=== PATIENT | female | born 1980 | race Caucasian/White ===

== ENCOUNTER 2018-08-16 22:40 | Emergency (ER) | payer MEDICARE ==
[~2018-08-16] VITALS: Ht 170.2 cm; Wt 59.1 kg
[2018-08-16 22:46] VITALS: Ht 170.2 cm; Wt 59.1 kg
[2018-08-16] MEDS ORDERED: BUSPAR10 MG PO (22:47)
[2018-08-16] MEDS ORDERED: INVEGA 3 MG ER T3 MG PO (22:47)
[2018-08-16] MEDS ORDERED: GRAPE SEED COMPLEX (22:47)
[2018-08-16 23:00] LABS: APPEARANCE CLEAR (CLEAR); BILIRUBIN NEGATIVE (NEGATIVE); COLOR COLORLESS (YELLOW); GLUCOSE NEGATIVE (NEGATIVE); KETONE NEGATIVE (NEGATIVE); NITRITE NEGATIVE (NEGATIVE); PROTEIN NEGATIVE (NEGATIVE); UROBILINOGEN NORMAL (NORMAL)
[2018-08-16 23:06] LABS: UDS - AMPHET NEGATIVE QUAL (NEGATIVE); UDS - BARB NEGATIVE QUAL (NEGATIVE); UDS - BENZO NEGATIVE QUAL (NEGATIVE); UDS - COCAINE NEGATIVE QUAL (NEGATIVE); UDS - OPIATE NEGATIVE QUAL (NEGATIVE); UDS - PCP NEGATIVE QUAL (NEGATIVE); UDS - THC NEGATIVE QUAL (NEGATIVE)
[2018-08-16 23:39] LABS: BASOPHILS 0.2 % (0-2); EOSINOPHILS 1.1 % (0-7); HEMATOCRIT 39.4 % (36.0-48.0); HEMOGLOBIN 14.1 g/dL (12-16); IMMATURE GRANULOCYTES 0.2 % (0-5); LYMPHOCYTES 19.3 % (15-50); MCH 33.3 pg (26.0-34.0); MCHC 35.8 g/dL (31.0-37.0); MCV 92.9 fL (80.0-100.0); MEAN PLATELET VOLUME 9.4 fL (7.4-10.4); MONOCYTES 8.6 % (2-11); NEUTROPHILS 70.6 % (40-80); PLATELET COUNT 202 10x3/uL (130-400); RBC 4.24 10x6/uL (4.00-5.40); RDW 12.2 % (11.5-14.5); WBC 13.2 10x3/uL (4.8-10.8)
[2018-08-16 23:52] LABS: ALBUMIN 3.9 g/dL (3.4-5.0); ALKALINE PHOSPHATASE 60 U/L (46-116); ALT (SGPT) 18 U/L (10-68); BILIRUBIN - TOTAL 0.47 mg/dL (0.2-1.3); CALC OSMOLALITY 261 mosm/kg (275-300); CALCIUM 8.8 mg/dL (8.5-10.1); CHLORIDE - SERUM 98 mmol/L (98-107); CREATININE - SERUM 0.5 mg/dL (0.6-1.3); GLUCOSE 94 mg/dL (74-106); POTASSIUM - SERUM 3.3 mmol/L (3.5-5.1); PROTEIN - SERUM 6.9 g/dL (6.4-8.2); SODIUM 132 mmol/L (136-145); UREA NITROGEN 5 mg/dL (7-18); eGFR NON AFRICAN AMERICAN > 90 mL/min (90-120)
--- NOTE | 2018-08-17 00:10 | NUR ---
PATIENT COME TO ER FOR ALTERED MENTAL STATUS. PATIENT STATES SHE CAME TO ED TODAY FOR SEVERE FEELINGS OF ANXIETY. PATIENT PACING BACK AND FORTH IN ROOM. PATIENT IS A MODERATE SUICIDE RISK. SHE HAS FREQUENT THOUGHTS OF SUICIDE THROUGHOUT HER LIFE. NEVER HAD A PLAN. PATIENT STATES SHE EXPERIENCES SUICIDAL THOUGHTS 4-5 TIMES PER WEEK. PATIENT DENIES THOUGHTS OF SELF HARM AT THIS TIME. HOWEVER, STATED SHE HAD HOMICIDAL THOUGHTS OF SUFFOCATING HER AND MOTHER IN [place] E[place]LIER TODAY. PATIENT STATED SHE HAS HAD PREVIOUS PSYCHIATRIC TREATMENT AT [facility]. DOCTOR QUINTEN, CLEANING HANDYMAN FOR DOCTOR ELIA, NOTIFIED OF ASSESSMENT FINDINGS. SAFETY PLAN MADE WITH PATIENT AND RESOURCES GIVEN TO PATIENT. PATIENT VERBALIZES UNDERSTANDING. PATIENT PLACED ON 1:1 OBSERVATION. SITTER AT BEDSIDE.
[2018-08-17 00:13] LABS: CKMB 1.5 U/L (0.0-3.6); CREATINE KINASE 181 UL (21-215); MAGNESIUM - SERUM 1.7 mg/dL (1.8-2.4); TROPONIN-I < 0.017 ng/mL (0.000-0.060)
[2018-08-17 03:48] VITALS: BP 134/94
== END 2018-08-17 03:49 ==
LOC: D.ER 22:40
PROVIDERS: Family Medicine
DX: R45.850 Homicidal ideations (principal); F29 Unspecified psychosis not due to a substance or known physiological condition